=== PATIENT | female | born 1955 | race African-American/Black ===

== ENCOUNTER 2024-03-23 09:06 | Outpatient (CLI) | payer OTHER ==
[2024-03-23 10:22] LABS: Hematocrit 39.6 % (34.9-44.5); Hemoglobin 12.4 g/dL (12.0-15.5); Mean Corpuscular HGB CONC 31.3 g/dL (32.0-36.0); Mean Corpuscular Hemoglobin 24.6 pg (27.0-33.0); Mean Corpuscular Volume 78.4 fL (81.6-98.3); Mean Platelet Volume 11.3 fL (7.4-10.4); Platelet Count 169 10x3/uL (150-450); RBC Distribution Width 14.2 % (11.5-14.5); Red Blood Cell (RBC) Count 5.05 10x6/uL (3.90-5.03); White Blood Cell (WBC) Count 5.88 10x3/uL (3.5-10.5)
[2024-03-23 11:27] LABS: Anion Gap 13 mmol/L (10-20); BUN (Urea Nitrogen) 10 mg/dL (9.8-20.1); Calc. Creatinine Clearance 0 mL/min (70-130); Calcium 9.2 mg/dL (7.8-10.44); Carbon Dioxide 26 mmol/L (23-31); Chloride 104 mmol/L (98-107); Estimated GFR 86; Glucose 194 mg/dL (80-115); Potassium 3.7 mmol/L (3.5-5.1); Sodium 139 mmol/L (136-145)
== END 2024-03-23 09:07 | disposition home or self-care (01) ==
LOC: CSHLAB 09:06
PROVIDERS: ATTEND Surgery
DX: Z01.818 Encounter for other preprocedural examination (principal); C50.919 Malignant neoplasm of unspecified site of unspecified female breast
CPT/HCPCS: 80048; 85027; 93005; 93010

== ENCOUNTER 2024-03-25 07:56 | Day surgery (SDC) | payer OTHER ==
[2024-03-23 10:17] VITALS: BMI 33.3
[2024-03-25] MEDS ORDERED: Isosulfan Blue 50 MG/5 ML VIAL ONE (09:48)
[2024-03-25] MEDS ORDERED: Bupivacaine HCl 0.5%/Epinephrine 1:200,000/PF 30 ml Vial ONE (09:48)
[2024-03-25] MEDS ORDERED: fentaNYL 50 mcg/mL 1 mL Vial ONE ×4 (09:50→13:55)
[2024-03-25] MEDS ORDERED: Lidocaine 1% PF 5 ML VIAL ONE (09:50)
[2024-03-25] MEDS ORDERED: PROPOFOL 20 ML ONE ×2 (09:50→12:08)
[2024-03-25] MEDS ORDERED: CEFAZOLIN 2 GM VIAL ONE (10:04)
[2024-03-25] MEDS ORDERED: Midazolam HCl 2 mg/2 ml Vial ONE (10:16)
[2024-03-25] MEDS ORDERED: Glycopyrrolate 0.2 MG/ML 5 ML SYRINGE ONE (10:16)
[2024-03-25] MEDS ORDERED: ePHEDrine Sulfate 50 MG/10 ML VIAL ONE ×2 (10:34→12:59)
[2024-03-25] MEDS ORDERED: Dexamethasone 4 mg/ml Vial ONE ×2 (10:40→12:08)
[2024-03-25] MEDS ORDERED: Ondansetron PF 4 MG/2 ML Vial ONE ×2 (10:40→12:08)
[2024-03-25] MEDS ORDERED: PHENYLEPHRINE-NS 100 MCG/ML 10 ML SYRINGE ONE (10:51)
[2024-03-25] MEDS ORDERED: Lidocaine 2% PF 5 ML VIAL ONE (12:08)
[2024-03-25] MEDS ORDERED: HYDROcodone/Acetaminophen 5/325 mg Tablet ONE (13:23)
== END 2024-03-25 14:30 | disposition home or self-care (01) ==
LOC: CSHSDC 07:56
PROVIDERS: ATTEND Surgery
PROC: 0HBU0ZZ Excision of Left Breast, Open Approach (ICD-10-PCS; principal; 2024-03-25)
PROC: 07B60ZZ Excision of Left Axillary Lymphatic, Open Approach (ICD-10-PCS; 2024-03-25)
DX: C50.912 Malignant neoplasm of unspecified site of left female breast (principal); C77.3 Secondary and unspecified malignant neoplasm of axilla and upper limb lymph nodes; N60.92 Unspecified benign mammary dysplasia of left breast; I10 Essential (primary) hypertension; E11.9 Type 2 diabetes mellitus without complications; E78.00 Pure hypercholesterolemia, unspecified; Z78.0 Asymptomatic menopausal state; Z90.710 Acquired absence of both cervix and uterus; Z79.84 Long term (current) use of oral hypoglycemic drugs; Z79.899 Other long term (current) drug therapy
CPT/HCPCS: 19301; 38525; 76098; 78195; A9541; C1713; J1100; J2250; J2405; J2704; J3010; Q9968; 88307; 88341; 88342

== ENCOUNTER 2024-04-22 07:43 | Day surgery (SDC) | payer OTHER ==
[2024-04-13 10:22] VITALS: BMI 33.3
[2024-04-22] MEDS ORDERED: PROPOFOL 20 ML ONE (09:04)
[2024-04-22] MEDS ORDERED: Fentanyl 100 MCG/2 ML VIAL ONE ×2 (09:04→13:38)
[2024-04-22] MEDS ORDERED: Lidocaine 2% PF 5 ML VIAL ONE (09:05)
[2024-04-22] MEDS ORDERED: Dexamethasone 4 mg/ml Vial ONE (09:06)
[2024-04-22] MEDS ORDERED: Bupivacaine/Epinephrine 0.25% 30 ML VIAL ONE (09:06)
[2024-04-22] MEDS ORDERED: Ondansetron PF 4 MG/2 ML Vial ONE (09:06)
[2024-04-22] MEDS ORDERED: CEFAZOLIN 2 GM VIAL ONE (09:07)
[2024-04-22] MEDS ORDERED: Sevoflurane 250 ML INH ANEST BOTTLE ONE (11:12)
[2024-04-22] MEDS ORDERED: Ketorolac Tromethamine 30 MG (1 mL) VIAL ONE (13:38)
== END 2024-04-22 16:30 | disposition home or self-care (01) ==
LOC: CSHSDC 07:43
PROVIDERS: ATTEND Surgery
PROC: 0HTU0ZZ Resection of Left Breast, Open Approach (ICD-10-PCS; principal; 2024-04-22)
PROC: 07T60ZZ Resection of Left Axillary Lymphatic, Open Approach (ICD-10-PCS; 2024-04-22)
PROC: 0JH60WZ Insertion of Totally Implantable Vascular Access Device into Chest Subcutaneous Tissue and Fascia, Open Approach (ICD-10-PCS; 2024-04-22)
DX: D05.12 Intraductal carcinoma in situ of left breast (principal); C77.3 Secondary and unspecified malignant neoplasm of axilla and upper limb lymph nodes; I10 Essential (primary) hypertension; E11.9 Type 2 diabetes mellitus without complications; E78.00 Pure hypercholesterolemia, unspecified; E66.9 Obesity, unspecified; Z68.34 Body mass index [BMI] 34.0-34.9, adult; Z90.710 Acquired absence of both cervix and uterus; Z79.84 Long term (current) use of oral hypoglycemic drugs; Z79.899 Other long term (current) drug therapy
CPT/HCPCS: 19307; 36561; 71045; A6258; C1713 ×2; C1788; J1100; J1642; J1885; J2405; J2704; J3010; 88307; 88309